=== PATIENT | male | born 1995 | race Caucasian/White ===

== ENCOUNTER 2016-11-28 10:59 | Emergency (ER) | payer SELFPAY ==
[2016-11-28 11:00] VITALS: BP 133/75; PULSE 75; RESP 15; TEMP 98.2; O2SAT 98
[2016-11-28] MEDS ORDERED: CIPR0.3S RIGHT EAR (11:42)
[2016-11-28] MEDS ORDERED: AUGM875T3 PO (11:42)
--- NOTE | 2016-11-28 11:43 | PD ---
HPI Chief Complaint: ENT Complaint Time Seen by Provider: 11:40 Travel History International Travel<30 days: No Contact w/Intl Traveler<30days: No Traveled to known affect area: No History of Present Illness HPI 21-year-old male presents to the emergency department for evaluation of right ear pain. Patient states he started with right ear pain on Tuesday. He went to an urgent care center and was prescribed amoxicillin. Patient reports worsening pain and drainage to the right ear despite being on amoxicillin. He denies any fevers or chills. No chest pain or shortness breath. No cough or congestion. No abdominal pain. Nausea, vomiting, diarrhea. Patient denies having any chronic medical problems or taking any prescribed medications other than the amoxicillin. He is taking ibuprofen for pain. [facility] Social History Alcohol Use: No Tobacco Use: No Substance Use: No Allergies-Medications (Allergen,Severity, Reaction): Coded Allergies: No Known Allergies (Unverified , 11/28/16) Reported Meds & Prescriptions Reported Meds & Active Scripts Active Augmentin (Amoxicillin-Clavulanate) 875-125 Mg Tab 1 Tab PO BID 10 Days Ciprodex Otic Drops (Ciprofloxacin-Dexamethasone Otic Drops) 0.3-0.1% Susp 4 Drop RIGHT EAR BID Review of Systems Except as stated in HPI: all other systems reviewed are Neg Physical Exam Narrative GENERAL: Well-nourished, well-developed male patient, afebrile. SKIN: Focused skin assessment warm/dry. HEAD: Normocephalic. Atraumatic. ENT: Mucosa pink and moist. No erythema or exudates. No uvular edema. No uvular , palatal, or tonsillar deviation. Airway patent. Nasal turbinates appear normal without nasal blood, purulent drainage or septal hematoma. Right ear canal is erythematous and swollen with purulent drainage noted. Tympanic membrane is erythematous with loss of landmarks. Left ear canal and tympanic membrane are within normal limits. No mastoid tenderness to palpation. EYES: No scleral icterus. No injection or drainage. NECK: Supple, trachea midline. No JVD or lymphadenopathy. CARDIOVASCULAR: Regular rate and rhythm without murmurs, gallops, or rubs. RESPIRATORY: Breath sounds equal bilaterally. No accessory muscle use. Lungs sounds are clear to auscultation. GASTROINTESTINAL: Abdomen soft, non-tender, nondistended. MUSCULOSKELETAL: No cyanosis, or edema. Data Data Last Documented VS Vital Signs Date Time Temp Pulse Resp B/P Pulse Ox O2 Delivery O2 Flow Rate FiO2 11/28/16 11:00 98.2 75 15 133/75 98 [facility] Medical Decision Making Medical Screen Exam Complete: Yes Emergency Medical Condition: Yes Medical Record Reviewed: Yes Differential Diagnosis Otitis media versus otitis externa versus eustachian tube dysfunction versus mastoiditis Narrative Course 21-year-old male presents to the emergency department for worsening right ear pain and drainage. Patient will be given Augmentin instead of amoxicillin. He' ll also be given Ciprodex ear drops. He is instructed to follow up with his primary care physician. He is return for any acute worsening of symptoms. Patient verbalizes agreement and understanding. The patient was discharged in stable condition with instructions, including return instructions and follow up instructions. Diagnosis Primary Impression: Otitis externa Qualified Code: H60.501 - Acute otitis externa of right ear, unspecified type Additional Impression: Otitis media Qualified Code: H66.90 - Acute otitis media, unspecified laterality, unspecified otitis media type Referrals: Primary Care Physician call for appointment Patient Instructions: General Instructions, Otitis Externa (ED), Otitis Media ( ED) Additional Instructions: Take Augmentin twice daily until gone. Stop amoxicillin. Use antibiotic ear drops twice daily as directed. Continue ibuprofen as directed for pain. Follow-up with your primary care physician. Return to the emergency department for any acute worsening of symptoms. Med/Other Pt SpecificInfo: Prescription(s) given Scripts Amoxicillin-Clavulanate (Augmentin)875-125 Mg Tab1 Tab PO BID 10 Days Ref 0 Prov:Lindsay Lal 11/28/16 Ciprofloxacin-Dexamethasone Otic Drops (Ciprodex Otic Drops)0.3-0.1% Susp4 Drop RIGHT EAR BID #1 BOTTLE Ref 0 Prov:Lindsay Lal 11/28/16 Disposition: 01 DISCHARGE HOME Condition: Stable Lindsay Lal Nov 28, 2016 11:43
== END 2016-11-28 12:05 | disposition home or self-care (01) ==
LOC: NEPC 10:59
DX: H60.501 Unspecified acute noninfective otitis externa, right ear (principal); H66.91 Otitis media, unspecified, right ear
CPT/HCPCS: 99283